=== PATIENT | male | born 1995 | race Caucasian/White ===

== ENCOUNTER 2022-10-08 12:09 | Emergency (ER) | payer SELFPAY ==
[~2022-10-08] VITALS: Ht 172.7 cm; Wt 72.6 kg
[2022-10-08 12:33] VITALS: BP 139/85; PULSE 98; RESP 18; TEMP 99; O2SAT 98
[2022-10-08 12:36] VITALS: BP 144/100; RESP 20; O2SAT 98
[2022-10-08 13:00] VITALS: O2SAT 98
[2022-10-08] MEDS ORDERED: KETOROLAC 15 MG/ML VIAL IM ONE (13:05)
--- NOTE | 2022-10-08 13:51 | NUR ---
CONTINUES TO AWAIT TO BE SEEN.
[2022-10-08] MEDS ORDERED: FAMOTIDINE 20 MG/2 ML VIAL IVP ONE (14:25)
[2022-10-08] MEDS ORDERED: ONDANSETRON 4 MG/2 ML VIAL IVP ONE (14:25)
[2022-10-08] MEDS ORDERED: NACL 0.9% 1,000 ML IV ONE (14:25)
[2022-10-08] MEDS ORDERED: DICYCLOMINE HCL LIQUID 20 MG, ALUMINUM HYD/MAG/SIMETHICONE 30 ML, LIDOCAINE VISCOUS 2% ... PO ONE ×3 (14:25)
--- NOTE | 2022-10-08 14:38 | NUR ---
Pt taken off unit.
--- NOTE | 2022-10-08 15:00 | NUR ---
PT NOT IN THE ROOM, GOWN IN THE BED, PRESUMED ELOPED
--- NOTE | 2022-10-08 15:20 | NUR ---
PER DR. SANCHEZ PATIENT ELOPED [id number]
--- NOTE | 2022-10-08 15:22 | NUR ---
TRIED TO CALL PATIENT. DIDNT ANSWER
== END 2022-10-08 15:20 | disposition left against medical advice (07) ==
LOC: MED 12:09
DX: R10.9 Unspecified abdominal pain (principal); R11.2 Nausea with vomiting, unspecified
CPT/HCPCS: 71045; 93005; 99283

== ENCOUNTER 2022-10-08 22:55 | Emergency (ER) | payer SELFPAY ==
[~2022-10-08] VITALS: Ht 170.2 cm; Wt 63.5 kg
[2022-10-08 23:11] VITALS: BP 140/97; PULSE 114; RESP 20; TEMP 97; O2SAT 98
--- NOTE | 2022-10-08 23:21 | NUR ---
PT WENT TO LOBBY
--- NOTE | 2022-10-09 02:45 | NUR ---
attempt to call the pt, no answers
--- NOTE | 2022-10-09 03:35 | NUR ---
PT IS PLACE IN THE CHAIR C
--- NOTE | 2022-10-09 03:55 | NUR ---
PT WS GIVEN SNACK TO EAT
--- NOTE | 2022-10-09 05:30 | NUR ---
Patient seen in the lobby walking around. No acute distress. No complaints of pain or discomfort. Respirations even and unlabored.
[2022-10-09 05:43] VITALS: BP 113/66; PULSE 71; RESP 18; TEMP 98; O2SAT 99
--- NOTE | 2022-10-09 05:43 | NUR ---
Patient discharged with v/s stable. Written and verbal after care instructions given and explained. Patient verbalized understanding. Ambulatory with steady gait. All questions addressed prior to discharge. Advised to follow up with PMD.
== END 2022-10-09 05:43 | disposition home or self-care (01) ==
LOC: MED 22:58
DX: S93.492A Sprain of other ligament of left ankle, initial encounter (principal); X58.XXXA Exposure to other specified factors, initial encounter; Y93.89 Activity, other specified; Y92.89 Other specified places as the place of occurrence of the external cause; Y99.8 Other external cause status
CPT/HCPCS: 73610; 99283